=== PATIENT | female | born 1975 | race Caucasian/White ===

== ENCOUNTER 2018-01-08 08:31 | Day surgery (SDC) | payer MEDICAID ==
[2017-12-28 08:51] VITALS: BMI 28.5
[2018-01-08 09:22] VITALS: O2SAT 100
[2018-01-08] MEDS ORDERED: Bupivacaine 0.5% Inj(30mL) ONE (10:20)
[2018-01-08] MEDS ORDERED: Lidocaine 1% Inj (20ml) ONE (10:20)
[2018-01-08] MEDS ORDERED: Midazolam 2 MG/2 ML VIAL ONE (10:33)
[2018-01-08] MEDS ORDERED: Propofol 10 mg/ml Inj (20 ML) ONE (10:33)
[2018-01-08] MEDS ORDERED: Bupivacaine 0.5% Inj(30mL) IJ ONE ×2 (11:14)
[2018-01-08] MEDS ORDERED: Oxycodone/Acetaminophen 5/325 mg Tab PO PRN (12:31)
[2018-01-08] MEDS ORDERED: HYDROmorphone 0.5 mg/0.5 ml ISec IVP PRN ×2 (12:31→12:33)
--- NOTE | 2018-01-08 12:31 | PCM.SURG1 ---
Surgeon's Initial Post Op Note - Surgeon's Notes Surgeon: Show Design Supervisor: Bradly PGY2 Type of Anesthesia: General LMA, Local Anesthesia Administered By: Dr. Machado Pre-Operative Diagnosis: ganglion cyst of right wrist Operative Findings: ganglion cyst of right wrist Post-Operative Diagnosis: ganglion cyst of right wrist Operation Performed: Removal of ganglion cyst of right wrist Specimen/Specimens Removed: ganglion cyst of right wrist Estimated Blood Loss: EBL {In ML}: 10 Blood Products Given: N/A Drains Used: No Drains Post-Op Condition: Good Date of Surgery/Procedure: 01/08/18 Time of Surgery/Procedure: 12:31
[2018-01-08] MEDS ORDERED: Lactated Ringer's 1,000 ML IV SCH (12:45)
[2018-01-08 13:22] VITALS: RESP 18; TEMP 97.6
[2018-01-08 13:51] VITALS: BP 135/99; PULSE 61
--- NOTE | 2018-01-10 13:07 | OP ---
Copied To: Tam Allen MD Attending MD: Tam Allen MD PROCEDURE DATE: 01/08/2018 SURGEON: Tam Allen MD. CLOTH MEASURER: Joel Abdullahi DO, PGY-2. THE TILE SHADER: Dr. Machado. ANESTHESIA: General intralaryngeal mask - Marcaine 0.5 - 14 mL. PREOPERATIVE DIAGNOSIS: Right volar wrist ganglion. POSTOPERATIVE DIAGNOSIS: Right volar wrist ganglion. PROCEDURE: 1. Excision of a right wrist ganglion. 2. Layered plastic closure 5 cm. OPERATIVE INDICATIONS: The patient is a 42-year-old [place] female with progressively enlarging and discomforting 2 cm ganglion of her right wrist. Aspiration and injection has failed to cure the problem and the patient is now requesting surgical removal. Risks, benefits and alternatives with their anticipated outcomes were discussed with the patient and with her and she signs the informed consent. The acts as tableau analyst as her Pashto is very poor. Following insurance clarification and precertification, the patient is now brought for elective surgery. OPERATIVE NOTE: The patient was brought to the operating room from the same-day holding area. She undergoes time-out procedure and is identified by her wristband and is placed on the table in a supine manner with the arm on an extended operating table to the side and undergoes the induction of general anesthesia with the insertion of an intralaryngeal mask. The right wrist and arm are prepped with Hibiclens, chlorhexidine preparation and the patient is aseptically draped. Infiltration is employed longitudinally on the skin over the course of the ganglion and incision made and sharp dissection carried on down through the subcutaneous tissues to the ganglion below. A tourniquet assembly device has been placed on the alarm and is inflated to 250 mmHg after using the Esmark compressive device to reduce the venous backflow. The ganglion is now very carefully dissected from the surrounding structures and elevated into the wound and dissected down through the carpal bones below the carpal tunnel. Care is maintained to avoid injury to other structures and vessels in the area and the lesion is now completely removed and submitted to pathology in formalin. The tourniquet is released. Attention is drawn to the hemostasis and the wound is completely controlled for hemostasis and then closed in layers using 3-0 Polysorb subcutaneous approximation and 3-0 nylon running locking suture for the skin. A dry dressing is applied. The patient is awakened, extubated and transported to the recovery room in a satisfactory condition. Sponge, instrument and suture count were verified as correct at the end of the procedure. Estimated blood loss during this procedure was less than 20 mL of blood. This dictation will be electronically signed without being read. The surgical supervisor was present throughout the entire procedure and was essentially needed for dissection and exposure for the entire procedure. Tam Allen MD
== END 2018-01-08 14:15 | disposition home or self-care (01) ==
LOC: SDS 08:31
PROVIDERS: ATTEND Surgery
DX: M67.431 Ganglion, right wrist (principal); D64.9 Anemia, unspecified
CPT/HCPCS: 25111; 88304; J0690; J1170; J1885; J2250; J2405; J2704; J2765; J3010; J7120 ×2